=== PATIENT | female | born 1970 | race Caucasian/White ===

== ENCOUNTER 2024-04-26 14:24 | Outpatient (REF) | payer BC, SELFPAY | END 2024-04-26 14:25 | disposition home or self-care (01) | LOC: HO.HOSX 14:24 | PROVIDERS: Visit Provider Orthopaedic Surgery | DX: Z13.89 Encounter for screening for other disorder (principal) ==

== ENCOUNTER 2024-04-27 09:55 | Outpatient (AMB) | payer BC, SELFPAY ==
--- NOTE | 2024-04-27 10:14 | A.OFFVIS_ITS ---
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 No fall was involved as part of this injury. Patient reports numbness and tingling at the DIP joint of the left ring and small fingers. Patient shares she is unable to bend her left right finger. Denies finger locking. Has tried Ibuprofen and Tylenol without relief. Patient has also been wearing a finger splint that has been helping alleviate her pain. Denies any injuries or surgeries to the left hand or left ring finger. 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 She also owns horses. About 4 weeks ago, approximately 03/27/2024, 1 of her horses got loose and as she was walking the horse back the horse pulled on the Jackie which were around her left index finger causing an injury to the left index finger. She did get her ring off. She noticed as time progressed she was having difficulty extending at the PIP joint and that her D IP joint was becoming more extended. Someone placed her in a volar finger splint which seem to be helping. She also has some numbness to the tip of the ring finger. 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 Physical Exam Vital Signs: BMI result Body Mass Index 28.7 Const General: cooperative, healthy appearing and no acute distress Orientation/consciousness: oriented to person and oriented to place HEENT Head: Yes normocephalic and Yes atraumatic Eyes EOM: EOMs intact bilaterally Resp Effort & Inspection: normal respiratory effort and able to speak in complete sentences Cardio Jugular venous distension: no JVD Skin General skin exam: turgor normal Rashes: no rashes Neuro General: oriented to person and oriented to place Extrem Other: Evaluation of left Upper Extremity: She does have some numbness to the tip of the left ring finger that has been present since her date of injury. Sensation is a little bit better slightly proximally on both the radial and ulnar side. She does still have some mild swelling of the left ring finger, more so at about the PIP joint level. When asked to fully and actively extend all of her digits she has a slight extensor lag at the PIP joint of the ring finger, and we also see slight hyper extension at the D IP joint indicative of an early boutonniere type picture. She is most tender to palpation over the central slip insertion and then also at the dorsal aspect of the D IP joint. She has somewhat less tenderness over the volar aspect of the proximal and middle phalanx, with no real tenderness at the FDP insertion She was able to demonstrate FDP and FDS tendon function As noted above she was able to actively extend the ring finger but had a slight extensor lag at the PIP and slight hyper extension at the D IP PIP joint was stable on exam Good MCP range of motion. Radiographs: Three views of the left hand with attention to the ring finger shows no fractures or dislocations. 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 Left ring finger early boutonniere deformity Date of injury approximately 03/27/2024, when reins of a horse got caught around the finger. I educated her about this condition We discussed operative and non operative treatment options. This is caught early and I am very hopeful we can treat this non operatively at this time. We placed a volar splint across the PIP joint allowing for MCP and DIP motion. She is to wear this or the splint from OT at all times except for when showering. I made an OT referral asking for a custom splint for the PIP joint holding it in extension, and exercises to work on active FDP tendon function, thereby keeping the lateral bands at the center of rotation at the PIP joint. She will need to do this for at least 6 weeks. Follow up in 1 month to see how she is doing. I also gave her a note for work placing her on light duty with a 2 lb weight limit for the left hand, asking that she wear her splint at all times while at w ork. These restrictions will be in place for at least 6 weeks. She understands that she may need to get help with her horses, as she talks about the fact that she seems to keep re-injuring the finger while working with her horses. 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
[2024-04-27 10:17] VITALS: BMI 28.7
== END 2024-04-27 11:28 | disposition home or self-care (01) ==
PROVIDERS: PCP Nurse Practitioner Family; Visit Provider Orthopaedic Surgery
DX: M20.022 Boutonniere deformity of left finger(s) (principal)
CPT/HCPCS: 99204

== ENCOUNTER 2024-04-27 10:08 | Outpatient (REF) | payer BC, SELFPAY | END 2024-04-27 10:09 | disposition home or self-care (01) | LOC: HO.HOSX 10:08 | PROVIDERS: Visit Provider Orthopaedic Surgery | DX: M79.642 Pain in left hand (principal) | CPT/HCPCS: 73130 ==

== ENCOUNTER 2024-05-26 13:59 | Outpatient (RCR) | payer BC, SELFPAY ==
--- NOTE | 2024-05-31 13:59 | MHC.OT.OEV ---
[address] [phone] F: [phone] Occupational Therapy Evaluation Patient Name: Susie Abarca Diagnosis: (L) 4th digit boutonniere deformity Date of Onset: 03/27/24 Date of Surgery: Attending Provider: Lacy Yusuf Prescribed Treatment: Skilled OT MD Follow Up Appointment: History of Current Condition: 54 y/o (F) s/p 8 week old tendon injury from having her finger stuck in a horses rope and yanked on; X ray was negative, has been wrapping finger in coband with metal volar stabilization plate. Patient reports takes splint off sometimes at night when her splint becomes uncomfortable. Patient has been wearing coband splint for 3 weeks prior to OT eval on 05/26/24. patient reports she can only move the end of her finger is in extension other mosley she cannot move it. 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 Significant Medical History: PACEMAKER Precautions/Contraindications: 2lb weight restriction Patient Goals: Wants to take care of her horses again, needs to lift and mechanic marine engine things. 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 Living Situation, Family and/or Social Support: Housemates that will help when needed as well as neighbors Current Level of Function and Occupation Self Care, Employment, Leisure: IND w/ADL's Needs some assistance with IADLS and tasks around the home specifically with horses Works for the [employer] Sleep: Impacts sleep; burning pain some nights Driving: (+) Vision: Balance: Pain Assessment Pain Score: 5 Pain Scale Used: Numeric (0 - 10) Pain Location and Description: Achy burning pain in (L) 4th digit Aggravating Factors: Lifting objects, groceries, briefcase ect Hit on objects Ice/cold weather Alleviating Factors: Tyelnol, Ibuprofen Skin and Soft Tissue Assessment Skin and Soft Tissue: Atrophy Redness Ecchymosis Comments: (L) 4th digit Bruising / discoloration noted around PIP Nerve assessment Ulnar Nerve: Median Nerve: Radial Nerve: Comments: Sensory Assessment Temperature: Light Touch: Proprioception: Vibration: Comments: intermittent numbness tip of 4th digit (L) Monofilament testing WFL Edema Assessment Upper Extremity: Lower Extremity: Comments: Dexterity Assessment Dexterity: Comments: Special Tests Comments: AROM(PROM) Strength Cervical Cervical Flexion: Cervical Extension: Cervical Lateral Flexion: Cervical Rotation: Comments: Shoulder Flexion: Extension: Abduction: Internal Rotation: External Rotation: Comments: Flexion: Extension: Abduction: Internal Rotation: External Rotation: Comments: Elbow Flexion: Extension: Pronation: Supination: Comments: Flexion: Extension: Pronation: Supination: Comments: Wrist Flexion: Extension: Ulnar Deviation: Radial Deviation: Comments: WFL Flexion: Extension: Ulnar Deviation: Radial Deviation: Comments: Thumb Thumb CMC Flexion: Thumb MCP Flexion: Thumb IP Flexion: Radial Abduction: Palmar Abduction: [place] ([place] 0-10): 7 Comments: Digits Index MCP: PIP: DIP: Long MCP: PIP: DIP: Ring MCP: (L)70* (R) 85* PIP: (L) 70* (R) 90* DIP: unable Small MCP: PIP: DIP: Comments: Gross Grasp: (L) 10lbs (R) 65 lbs Lateral Pinch: Two-Point Pinch: Three-Jaw [place]: Comments: Patient Education 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 Patient demonstrates Patient verbalizes Barriers to Learning: None Readiness for Learning: Accepting Who was educated? Patient Comments: Plan of Care Assessment: 54 y/o F presents with a tight ORL that may be resulting in a mild boutonniere deformity of the (L) RF that impacts her IADL participation. 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 Patient experiences pain when attempting to move the (L) RF at the PIP. Patient also presents with decreased mechanic marine engine strength in the (L) hand. 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 Patient would benefit from skilled OT services to create custom splints, regain strength, and return patient to her PLOF. It is noted that patient was seen on 04/27/24 by Doctor Yusuf and did not schedule initial eval by OT until 05/26/24 STG Duration: 2 weeks Short Term Goals: Patient will be IND and compliant w/ splint wear and care schedule Patient will be IND and compliant w/HEP LTG Duration: 4 weeks Seat Nailer Goals: Patient will demonstrate at least 50lbs of (L) mechanic marine engine strength to engage in IADL tasks Patient will tolerate at least 25lbs from floor to waist in preparation for farm work Patient will demonstrate pain free composite fist Frequency and Duration: The patient will be seen 1x week for 4 weeks Treatment Plan: Therapeutic Exercise Therapeutic Activity Home Exercise Program Splinting Patient Education Edema Control ADL Training Ultrasound NMES Iontophoresis Paraffin Fluidotherapy MHP Cold Packs Joint Mobilization Soft Tissue Mobilization Kinesiotaping Electronically Signed By: Hetal Flores OT/s Reviewed/agree with student documentation: Therapist: Tory Pérez, OTR/L, CLT Please sign and return to therapist, Thank you for your referral.
== END 2025-04-17 13:38 | disposition home or self-care (01) ==
LOC: HO.OT 13:59
PROVIDERS: PCP Family Medicine; Visit Provider Orthopaedic Surgery
DX: M20.022 Boutonniere deformity of left finger(s) (principal)
CPT/HCPCS: 29130; 97165; 97760